=== PATIENT | male | born 1965 | race Caucasian/White ===

== ENCOUNTER 2017-12-18 14:11 | Emergency (ER) | payer SELFPAY ==
[2017-12-18 14:12] VITALS: BP 142/84; PULSE 65; RESP 20; TEMP 37; O2SAT 99; BMI 24.8
--- NOTE | 2017-12-18 14:42 | RAD_ITS ---
STUDY: X-RAY CHEST REASON FOR EXAM: Male, 52 years old. Chest pain TECHNIQUE: Single AP portable view of the chest. COMPARISON: None. FINDINGS: The lungs are clear and expanded. There is no demonstrated pleural abnormality. Normal size heart. Normal mediastinum and nash. Normal visualized pulmonary arteries. Normal visualized aortic arch and descending thoracic aorta. Normal visualized thoracic spine. Normal visualized ribs, clavicles, and shoulders. There is no demonstrated abnormality of the visualized soft tissue structures of the upper abdomen. RAD/Chest PA and Lateral IMPRESSION: Normal x-ray examination of the chest. Electronically Signed: Bethel Sales DO at 15:22 EDT Tel , Service support ,
--- NOTE | 2017-12-18 14:42 | EKG12_ITS ---
Test Reason : CP Blood Pressure : / mmHG Vent. Rate : 053 BPM Atrial Rate : 053 BPM P-R Int : 146 ms QRS Dur : 092 ms QT Int : 396 ms P-R-T Axes : 038 019 054 degrees QTc Int : 371 ms Sinus bradycardia Otherwise normal ECG Confirmed by DONELL LORENZO, TANGELA ([id number]), graphic editor ALEJANDRO VELASQUEZ ([id number]) on 12/23/2017 3:06:39 PM Referred By: RAMIREZ Confirmed By:TANGELA MARLEY MD
[2017-12-18 15:02] VITALS: BP 101/81; PULSE 77; RESP 20; O2SAT 95
[2017-12-18 15:24] VITALS: PULSE 82; RESP 23; O2SAT 98
[2017-12-18] MEDS: Ipratropium/Albuterol Sulfate 3 ML AMPUL.NEB INHALATION (15:24)
--- NOTE | 2017-12-18 15:55 | ED.VISSUMM ---
- ER Visit Summary Date of Service: 12/18/17 Chief Complaint: Chest pain History of Present Illness: The patient is a 52 M who reports left-sided back pain just underneath his scapula for the past 3 weeks. He thought he pulled a muscle. This morning he coughed while he was in the shower and now has sharp pain to that same area. He has a history of asthma so he states he always coughs. There has been no recent change in those symptoms. No recent URI symptoms. No trauma to the chest. Physical Examination: Blood pressure is 142/84, temperature 98.6, heart rate 65, respiratory rate 20, pulse ox 99% on room air. Patient sitting upright in bed in no acute distress. He speaking full sentences. Heart is regular rate and rhythm. Lung sounds with mild rales throughout. He has mild tenderness to palpation just inferior to the left scapula. No crepitus is noted. Abdomen is soft nontender. Lower extremity examination was no calf tenderness or edema. Test Results: Two-view chest x-ray is unremarkable. EKG is sinus bradycardia at 53 bpm with no sign of acute ischemia. Emergency Department Course and Treatment: Patient was given DuoNeb treatment here. On repeat evaluation patient states he feels much improved. He does have albuterol inhaler at home he can use. He will be given a prescription for naproxen. Treatment Plan: [] Disposition: Discharge Impression: Chest wall pain This note was generated with [employer] dictation software. It may contain incorrect words, spelling, and punctuation that were not noted in review of the chart prior to signing ED Disposition - Plan for ED Patient: Chief Complaint: Chest Pain Referrals: Blas Callahan DO [Primary Care Provider] -
--- NOTE | 2017-12-18 15:56 | ED.DEP ---
ED Disposition - Plan for ED Patient: Disposition: Home or Assisted Living Chief Complaint: Chest Pain Instructions: ED Strain Chest Wall Prescriptions: Naproxen [Naprosyn] 500 mg PO BID PRN #20 tablet Referrals: Blas Callahan DO [Primary Care Provider] - 1 Week if not improving
[2017-12-18 16:09] VITALS: BP 152/129; PULSE 81; RESP 15; O2SAT 98
[2017-12-18 16:10] VITALS: BP 144/90; PULSE 72; RESP 18; O2SAT 98
== END 2017-12-18 16:13 | disposition home or self-care (01) ==
PROVIDERS: Emergency Provider Emergency Medicine; Family Provider Family Medicine; PCP Family Medicine
DX: R07.89 Other chest pain (principal)
CPT/HCPCS: 71046; 93005; 94640; 99285; A4216

== ENCOUNTER → 2022-03-13 | Outpatient (CLI) | payer OTHER, SELFPAY ==
--- NOTE | 2022-03-13 15:46 | RAD_ITS ---
INDICATION: PAIN EXAMINATION/TECHNIQUE: X-RAY - LEFT XR Knee 3 Views 3 VIEWS COMPARISON: None. FINDINGS: Mild to moderate narrowing of the medial joint space, mild narrowing of the lateral joint space is visualized. Mild narrowing of the patellofemoral joint space is seen. Degenerative bone changes are seen. No evidence of cortical irregularity or lucency to suggest a fracture, no evidence of lytic or sclerotic bone lesion is seen. No evidence of suprapatellar effusion is seen. Quadriceps patellar tendons are unremarkable. RAD/Knee 3 Views IMPRESSION: Degenerative changes, no evidence of acute osseous abnormality is seen. Electronically Signed: uLciano Thomson MD at 16:09 EDT ,
--- NOTE | 2022-03-13 15:47 | RAD_ITS ---
INDICATION: PAIN EXAMINATION/TECHNIQUE: X-RAY - RIGHT XR Knee 3 Views 3 VIEWS COMPARISON: None. FINDINGS: Moderate narrowing of the medial joint space, mild narrowing of the lateral joint space is visualized. Mild narrowing of the patellofemoral joint space is seen. Degenerative bone changes are seen. No evidence of cortical irregularity or lucency to suggest a fracture, no evidence of lytic or sclerotic bone lesion is seen. Suggestion of a small suprapatellar effusion is seen. Quadriceps patellar tendons are unremarkable. RAD/Knee 3 Views IMPRESSION: Degenerative changes, no evidence of acute osseous abnormality is seen. Electronically Signed: Luciano Thomson MD at 16:10 EDT ,
[2022-03-13 17:59] LABS: Absolute Neutrophil Count 6.2 X10^3/uL (2.0-7.7); Basophil# 0.04 X10^3/uL; Basophil% 0.5 % (0-1); Eosinophil# 0.12 X10^3/uL; Eosinophils% 1.4 % (0-5); Hematocrit 43.8 % (40-54); Hemoglobin 14.9 g/dL (13.0-16.5); Lymphocyte % 20.7 % (19-41); Mean Corpuscular Hgb 33.9 pg (27.0-32.0); Mean Corpuscular Volume 99.5 fL (80-94); Mean Platelet Vol. 8.8 fl (6.2-12.0); Monocyte# 0.55 X10^3/uL; Monocyte% 6.3 % (0-10); NRBC Flagged by Analyzer 0 % (0-5); Neutrophil # 6.15 X10^3/uL (2.7-7.7); Neutrophil % 70.8 % (47-70); Platelet Count 304 K/mm3 (150-450); RBC Distribution Width CV 12.1 % (11.6-14.6); White Blood Count 8.7 K/mm3 (4.4-11.0)
[2022-03-13 18:18] LABS: AST(SGOT) 20 U/L (15-37); Alanine Aminotransfer ALT/SGPT 33 U/L (16-61); Albumin, Serum 3.8 g/dL (3.2-5.0); Alkaline Phosphatase 102 U/L (45-117); Anion Gap 9 (5-15); BUN 30 mg/dL (7-18); BUN/Creat Ratio 28.6 RATIO (10-20); Calcium,Total 9.3 mg/dL (8.5-10.1); Chloride 105 mmol/L (98-107); Cholesterol 214 mg/dL (200); Creatinine, Serum 1.05 mg/dL (0.70-1.30); EST Glomerular Filtration Rate 77 mL/min (>60); Est Glom Filt Rate - Afr Amer 93 mL/min (>60); Globulin 3.8 g/dL (2.2-4.2); Glucose 109 mg/dL (74-106); High Density Lipoprotein 51 mg/dL; Potassium 3.6 mmol/L (3.5-5.1); Protein, Total 7.6 g/dL (6.4-8.2); Sodium Level 143 mmol/L (136-145); T4 Free Direct 0.84 ng/dL (0.76-1.46); Thyroid Stim Hormone (TSH) 0.88 uIU/mL (0.358-3.74); Triglycerides 195 mg/dL; Very Low Density Lipoprotein 39 mg/dL (5-40)
== END | disposition home or self-care (01) ==
LOC: MTLAB 15:45
PROVIDERS: PCP Family Medicine; Referring Provider Family Medicine; Visit Provider Family Medicine
DX: M25.562 Pain in left knee (principal); M25.561 Pain in right knee; F17.210 Nicotine dependence, cigarettes, uncomplicated; E04.1 Nontoxic single thyroid nodule
CPT/HCPCS: 36415; 73562; 80053; 80061; 84439; 84443; 85025

== ENCOUNTER → 2022-03-19 | Outpatient (CLI) | payer OTHER, SELFPAY ==
--- NOTE | 2022-03-19 12:54 | US_ITS ---
STUDY: THYROID ULTRASOUND REASON FOR EXAM: Male, 56 years old. Thyroid nodule. TECHNIQUE: Ultrasound evaluation of the thyroid was performed with real-time and static reinoso-scale imaging. COMPARISON: None. FINDINGS: RIGHT LOBE: The right lobe of the thyroid gland measures 4.9 cm x 1.4 cm x 1.8 cm. There is a homogeneous echotexture. There are no demonstrated solid, cystic or complex lesions. LEFT LOBE: The left lobe of the thyroid gland measures 4.8 cm x 1.3 cm x 1.6 cm. There is a homogeneous echotexture. There are no demonstrated solid, cystic or complex lesions. ISTHMUS: The isthmus measures 1 mm. The regional lymph nodes are normal. US/Thyroid IMPRESSION: Normal ultrasound examination of the thyroid. Electronically Signed: Patrick Lozano MD at 13:27 EDT ,
== END | disposition home or self-care (01) ==
PROVIDERS: PCP Family Medicine; Referring Provider Family Medicine; Visit Provider Family Medicine
DX: E04.1 Nontoxic single thyroid nodule (principal)
CPT/HCPCS: 76536

== ENCOUNTER → 2022-03-23 | Outpatient (CLI) | payer OTHER, SELFPAY ==
--- NOTE | 2022-03-24 08:48 | PFT ---
INTRODUCTION: The patient is a 56-year-old male that presents for pulmonary function studies secondary to a diagnosis of chronic cough. Respiratory therapy reported good patient effort. Bronchodilators were used during testing. INTERPRETATION: Forced expiration spirometry demonstrates the presence of a mild large airways obstructive ventilatory defect. There was no significant response to aerosolized bronchodilators. Spirograms are of good quality and plateau gradually indicating slow emptying of the lungs. Body plethysmography was performed and reveals lung volumes to be within normal limits. Diffusing capacity by single breath CO is also within normal limits. IMPRESSION: Irreversible mild large airways obstructive ventilatory defect with preserved lung volumes and diffusing capacity.
== END | disposition home or self-care (01) ==
LOC: PSN 06:50
PROVIDERS: PCP Family Medicine; Visit Provider Family Medicine
DX: R05.3 Chronic cough (principal)
CPT/HCPCS: 94060; 94726; 94729

== ENCOUNTER → 2022-08-29 | Outpatient (CLI) | payer OTHER, SELFPAY ==
--- NOTE | 2022-08-29 10:05 | CT_ITS ---
STUDY: LOW DOSE CT LUNG CANCER SCREENING REASON FOR EXAM: Male, 57 years old. ENCOUNTER FOR SCREENING FOR MALIGNANT NEOPLASM OF LUNG RADIATION DOSAGE (If Supplied By Facility): CTDIvol = ( 3.02 ) mGy, DLP = ( 93.65 ) mGycm TECHNIQUE: No contrast was administered. Low dose technique was utilized (average mAS-38 and kVp 120). 1.25 mm axial source images with a slice interval of 1.25-mm were reconstructed in lung windows. 2.5 mm axial source images with a slice interval of 2.5-mm were reconstructed in lung windows. 5.0 mm axial source images with a slice interval of 5.0-mm were reconstructed in soft tissue windows. COMPARISON: None. Emphysema: Mild emphysema. No noncalcified nodule or mass. Endobronchial lesion: None Aorta: No aortic aneurysm. CORONARY ARTERIES: Coronary artery calcification is seen. Heart: No cardiomegaly. Pulmonary artery: Normal Mediastinal nodes: Normal Other chest and abdominal findings: None CT/Low Dose CT Lung Screening IMPRESSION: Lung-RADS category 1 - Continue annual screening with LDCT in 12 months. IMPORTANT NOTES FOR USE: ACR Lung-RADS Version 1.1 Assessment Categories Release Date: 2018 Category: Coded 0-4 bases on nodule(s) with highest degree of suspicion. Negative screen is defined as categories 1 and 2; a positive screen is defined as categories 3 and 4. Category 3 and 4A nodules that are unchanged on interval CT should be coded as category 2, and individuals returned to screening in 12 months. Category 4X: Category 3 or 4 nodules with additional imaging findings that increase the suspicion of lung cancer, such as spiculation, GGN that doubles in size in 1 year, enlarged lymph notes, etc. Category Modifiers: S (significant finding unrelated to lung cancer) Electronically Signed: Magno Lan MD at 13:00 EST ,
== END | disposition home or self-care (01) ==
LOC: CT 10:03
PROVIDERS: PCP Family Medicine; Visit Provider Nurse Practitioner Family
DX: Z12.2 Encounter for screening for malignant neoplasm of respiratory organs (principal)
CPT/HCPCS: 71271

== ENCOUNTER → 2022-09-26 | Outpatient (CLI) | payer OTHER, SELFPAY ==
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
--- NOTE | 2022-09-26 08:53 | MRI_ITS ---
INDICATION: pain, hyperextended knee 7 mon ago EXAMINATION: MRI - LEFT MR Knee W/O Contrast TECHNIQUE: Multiplanar and multisequence MR images of the LEFT knee. IV Contrast Dosage and Agent: None. COMPARISON: None. FINDINGS: BONE: See below. JOINT: Mild tricompartmental chondromalacia and osteoarthritis. Moderate marrow edema medial femoral condyle mild marrow edema medial aspect medial tibial plateau. MUSCLES: Unremarkable. MENISCI: Image tear posterior horn extends inferior articular surface series 4 image 7. Tear extends to the body where it also extends inferior articular surface on series 6 image 15. Anterior horn is intact. CRUCIATE LIGAMENTS: Anterior and posterior cruciate ligaments are intact. COLLATERAL LIGAMENTS: Medial collateral ligament and lateral collateral ligamentous complex, inclusive of the popliteal tendon, are intact. CARTILAGE: Osteochondritis dissecans inferior medial medial femoral condyle measuring 8 mm transverse. OTHER SOFT TISSUES: Tiny Shah''s cyst. Moderate suprapatellar joint effusion with plica extending across suprapatellar bursa. MRI/Lower Ext Joint Only (Routine) IMPRESSION: Cleavage tear posterior horn and body medial meniscus extends inferior articular surface. Osteochondritis desiccated and medial femoral condyle with moderate subjacent marrow edema. Moderate suprapatellar joint effusion. Tiny Shah''s cyst. Electronically Signed: Abdullahi Doss MD, ABIGAIL at 12:51 EDT ,
== END | disposition home or self-care (01) ==
LOC: MRI 08:52
PROVIDERS: PCP Family Medicine; Referring Provider Orthopaedic Surgery; Visit Provider Orthopaedic Surgery
DX: M17.12 Unilateral primary osteoarthritis, left knee (principal); M23.90 Unspecified internal derangement of unspecified knee
CPT/HCPCS: 70030; 73721

== ENCOUNTER 2022-10-20 09:24 | Day surgery (SDC) | payer OTHER, SELFPAY ==
[2022-10-20 09:54] VITALS: BP 137/85; PULSE 71; RESP 16; TEMP 36.9; O2SAT 95; BMI 25.1
[2022-10-20] MEDS: Lactated Ringers 1,000 ML 15 ML IV (10:00)
--- NOTE | 2022-10-20 10:23 | PCM.HP.BLA ---
History and Physical Date of Admission: 10/20/22 [facility] [address] [place] [address] OFFICE VISIT Date of Service:? 09/28/22 MR#: [id number] Acct: [id number] Name:CHINA STOVER Rep #: [id number] : 1965 ? ? Provider: Dr. Ottoniel Napoles, Age/Sex:? 57/M ? ? [place] [facility] [place] Status: Signed Intake Intake Visit Reasons:?LEFT KNEE Accompanied by: Self Is patient in pain?: Yes Allergies No Known Allergies Allergy (Verified 09/16/22 10:13) Medications etodolac 500 mg tablet 500 mg PO BID #60 tabs 05/18/22 [Rx Confirmed 09/28/22] PFSH Surgical History? History of tonsillectomy Family History? Grandfather Colon cancer Social History? Smoking Status:? Current every day smoker tobacco type: cigarettes alcohol intake:? current alcohol intake frequency: a few times a week HPI LEFT KNEE Details: Parts of this documentation were recorded by a scribe, this documentation accurately reflects the service provided and the decisions made by me, Dr. Ottoniel Napoles, DO 09/28/22 0827. CHINA GRACE is a 57 year old M here today for? F/U on the left knee after having MRI of the knee. He states that his knee is still very painful and he has a painful locking in the knee. His knee is also very painful with pivoting motions of the knee. HE has been FWB and using a hinge knee brace. He has been taking etoldolac. Ortho Exam General General: Yes no acute distress Neurologic: Yes alert and Yes oriented x3 Psychologic: Yes reasonable and appropriate Right Knee Patella Translation: 1 Left Knee Skin/Wound: Yes CDI, No ecchymosis, No erythema and No swelling Homans Sign: No Knee ROM: Yes ROM-Extension -20 to 0 and Yes ROM-Flexion 0-140 (118) Examination: Yes med jt line tenderness, No Lat jt line tenderness and Yes Trevin's Test Stability: NML: Anterior Drawer, NML: Posterior Drawer, NML: Valgus 0, NML: Valgus 30 and NML: Varus 0 Patella Translation: 1 KNEE: slight varus deformity, synovial hypertrophy. translation of patella- crepitation and pain, medial trevin causes pain. Head: Normocephalic Atraumatic Chest: symmetrical rise, non-labored breathing, no audible wheeze Abdomen: no guarding, non-rigid Supplemental Info 09/26/2022 MRI left knee: Mild tricompartmental chondromalacia, ? Moderate marrow edema medial femoral condyle and medial tibial plateau , with some subchondral irregular irregularity of the posterior medial femoral condyle there is a large tear of the posterior horn medial meniscus which extends to the articular surface and body 03/13/2022 x-ray left knee: Mild to moderate narrowing of the medial compartment Coding Level of Care Code Off vis,est,level 3 Assessment and Plan Plan Details Additional Comments: Patient educated that he has a large medial meniscus tear of the knee along with OA and edema of the bone over the medial side of the knee. Educated that there may be an area wear the cartilage is missing over the medial knee. Recommended a left knee arthroscopy partial medial meniscectomy versus repair with possible microfracture medial femoral condyle but microfracture or meniscus repair would? require him to be NWB for 6 weeks. Reviewed the pre-operative plans with the patient. Risks and benefits of the procedure were fully explained, including but not limited to infection, neurovascular injury, continued pain, arthritis, stiffness, need for further surgery, re-injury, DVT, PE, general risks of anesthesia, and loss of limb or life. The patient understands all the risks and does wish to proceed with written consent for left knee arthroscopy partial medial meniscectomy vs repair, possible microfracture repair. Also discussed a medial research professional brace for post op but this will be further discussed after surgery. He should stop all NSAIDs 7 days prior to surgery including etodolac. He wishes to proceed with surgery as soon as he can. Discussed smoking cessation as would help with risk of wound infection and healing.? Risk of needing further surgery secondary to arthrosis and possibility of continued pain addressed. Follow up 2 weeks post op or sooner if pain, swelling, numbness or associated symptoms, or concerns develop.? All questions answered. Patient in agreement of plan. 09/28/22 1150 <Electronically signed by Ottoniel Napoles DO> Date Ottoniel Napoles DO Cosigner Signature: Date (if applicable) I have examined the patient and the H&P has been reviewed. There are no clinical changes since date of exam.
[2022-10-20] MEDS: Cefazolin 2 GM in 0.9% Normal Saline 100 ML IV (11:19)
[2022-10-20] MEDS: Epinephrine (1 mg/ml) 1 MG/ML VIAL (11:30)
[2022-10-20] MEDS: Lidocaine 1%/Epi 1:200 (30ml) 30 ML AMPUL (11:30)
[2022-10-20] MEDS: MethylPREDNISolone Acetate 40 MG/ML Vial IM (11:57)
[2022-10-20] MEDS: Bupivacaine Mpf 0.5% 30 ML VIAL (11:57)
--- NOTE | 2022-10-20 11:58 | OP.PCM_ITS ---
Operative Report Date of Procedure: 10/20/22 Preop diagnosis: Left knee medial meniscus tear DJD Postoperative diagnosis: Left knee complex degenerative medial meniscus tear diffuse grade III chondromalacia medial compartment with small areas of grade 4 and grade 2-3 cartilage wear patellofemoral joint Procedure: Left knee arthroscopic partial medial meniscectomy and chondroplasty medial and patellofemoral compartment Anesthesia: General Estimated blood loss: 5 mL Tourniquet time: 30 minutes 300 mmHg Complications: none Indication for procedure: 57-year-old male patient who has had ongoing mechanical knee pain in spite of conservative treatment did have MRI evidence of medial meniscus tear and DJD the patient did wish to proceed with an elective arthroscopic surgery to attempt to alleviate the symptoms. Risk benefits and alternatives of the procedure were reviewed including risk of bleeding infection nerve artery tissue damage need for further surgery continued pain and expected postoperative course. Procedure: The patient was met in the preoperative holding area. The operative extremity was identified by both patient and physician and family and marked. Patient was brought back to the operating room on a wheeled cart and transferred to the operating table in the supine position. Anesthesia was started. A well- padded tourniquet was placed on the operative extremity. A lower extremity leg oacsio was secured to the operative extremity. The contralateral extremity was well-padded and the end of the bed was flexed to 90 degrees. The patient was prepped and draped in the usual sterile fashion. A timeout was called to ensure the proper patient, procedure, and extremity were being contemplated. 0.5% Marcaine with epinephrine was injected into the planned incisional areas under the skin only. An Esmarch was used to exsanguinate the extremity and the tourniquet was inflated. An 11 blade scalpel was used to make a stab incision in the anterior lateral portal. The arthroscope was inserted into the intercondylar notch and inflow and outflow tubes were attached. Arthroscopic visualization began. The medial compartment was entered. An 18-gauge spinal needle was used to establish the placement for anterior medial portal. An 11 blade scalpel was used to make a stab incision. Blunt probe was inserted followed by a meniscal probe. There is noted be high grade 3 cartilage wear throughout the medial compartment including the medial femoral condyle and a small area of grade 4 of the medial tibial plateau there was also noted a complex tear of the posterior horn and body of the medial meniscus with use of arthroscopic biting instruments and a shaver and ArthroCare wand a partial medial meniscectomy and chondroplasty of the medial compartment was performed the ACL was found to be intact. The lateral compartment was entered and was free of meniscal or cartilage pathology The arthroscope was switched to the medial portal to complete the procedure. The medial and lateral gutters were inspected and were free of loose bodies. The patellofemoral joint was inspected and had areas of grade III chondromalacia of the trochlea and patella gentle chondroplasty was performed in these areas for loose cartilage flaps. There was good patellar tracking. The knee was thoroughly irrigated and drained. An intra-articular injection with 5 cc 0.5% Marcaine plain and 40 mg of Depo-Medrol was injected intra-articularly. The arthroscope was removed the portals were closed with 3-0 nylon arthroscopic stitches. Followed by Xeroform 4 x 4's ABDs web roll and an Victor M wrap. The tourniquet was let down and the drapes were removed. All counts were correct. The patient was brought back to the PACU in stable condition. 3
--- NOTE | 2022-10-20 12:01 | DCINST_ITS ---
Discharge Instructions Diet Discharge Diet: No restrictions Dressing / Incision Call your doctor if you observe: Shortness of breath and Chest pain Additional Dressing/Incision Instructions:: Ice and elevate next 72 hours .keep dressing on clean and dry for 48 hours then may remove begin showering daily but do not submerge in tub or pool. After shower may apply Band-Aids . Encourage knee range of motion weightbearing as tolerated, use crutches until confident in knee then may discontinue. No strenuous activity. When not ambulating keep iced and elevated next 72 hours. Do not mix pain medication with recreational drugs or alcohol only take as prescribed can be addictive and abusive, call with any questions or concerns. Follow Up Care Please Follow Up With: Ottoniel Napoles DO When: 2 weeks Test Results: Test results from this visit will be discussed in further detail at your follow- up appointment, if applicable. Discharge Plan Admission Primary Reason for Your Visit: Left knee arthroscopy Attending Provider: Ottoniel Napoles Primary Care Provider: Kam Combs Discharge Orders/Prescriptions Prescriptions: New oxycodone 5 mg tablet 5 - 10 mg PO Q4H PRN (Reason: pain) 5 Days Qty: 20 0RF Referrals / Follow Up: Kam Combs MD [Primary Care Provider] - Disposition Disposition (needs filled in before D/C Order can be placed): Home, Self Care
[2022-10-20 12:09] VITALS: BP 120/88; BP 137/85; PULSE 62; RESP 16; TEMP 36.2; O2SAT 95
[2022-10-20 12:15] VITALS: BP 114/84; BP 137/85; PULSE 68; RESP 16; O2SAT 93
[2022-10-20 12:30] VITALS: BP 137/85; BP 153/86; PULSE 73; RESP 16; O2SAT 96
[2022-10-20 12:36] VITALS: BP 137/85; BP 150/94; PULSE 75; RESP 18; TEMP 36.1; O2SAT 100
[2022-10-20 13:05] VITALS: BP 137/85
== END 2022-10-20 13:19 | disposition home or self-care (01) ==
LOC: SDC 09:25 → AC 09:26
PROVIDERS: PCP Family Medicine; Referring Provider Orthopaedic Surgery; Visit Provider Orthopaedic Surgery
PROC: (CPT 29870; principal; 2022-10-20 10:45)
DX: S83.232A Complex tear of medial meniscus, current injury, left knee, initial encounter (principal); J44.9 Chronic obstructive pulmonary disease, unspecified; M94.262 Chondromalacia, left knee; X58.XXXA Exposure to other specified factors, initial encounter; M17.12 Unilateral primary osteoarthritis, left knee; F17.210 Nicotine dependence, cigarettes, uncomplicated
CPT/HCPCS: 29881; 01400; J7120; J2405

== ENCOUNTER → 2023-08-11 | Outpatient (CLI) | payer OTHER, SELFPAY ==
[2023-08-11 11:16] LABS: Bacteria 0 SEEN /hpf (None Seen); Mucous, Urine 0 SEEN /hpf (<or=2+); Red Blood Cells-Urine 0 SEEN /hpf (0-5); Squamous Epithelial Cells - UA 0 SEEN /hpf (0-5); White Blood Cells 0 SEEN /hpf (0-5)
--- OUTSIDE RECORDS SUMMARY | 2023-08-11 11:53 | XMS RPT_ITS | CCD ---
Author Name Unknown Address [address] [place] [address] Organization [facility] Care Team Providers Care Enrollment Counselor Name Role Phone MARY LOU VELASQUEZ Attending Unavailable MARY LOU VELASQUEZ Primary Care Unavailable MARY LOU VELASQUEZ Admitting Unavailable BRETT LUNA Consulting Unavailable PROVIDER, UNKNOWN Consulting Unavailable Results Test Name Value Interpretation Reference Range Facil ity Encounters Encounter Date Encounter Type Care Provider Facility Start: 10-27-2021 End: 10-27-2021 ambulatory MARY LOU VELASQUEZ [facility] Payers Date Payer Category Payer Unknown [id number] Unknown [id number] Summary Purpose Family History No Family History Records FoundNo Family History Records Found Advance Directives No Advanced Directives Records FoundNo Advanced Directives Records Found Additional Source Comments (unrecognized sect ion and content) No Status Records FoundNo Status Records Found INFORMATION SOURCE (unrecogn ized section and content) DATE CREATED AUTHOR AUTHOR'S ORGANIZ ATION 10/31/2021 [facility] FOR RECORDS PERTAINING TO PATIENTS WHO ARE OR HAVE BEEN ENROLLED IN A CHEMICAL DEPENDENCY/SUBSTANCEABUSE PROGRAM, SOME INFORMATION MAY BE OMITTED. This clinical summary was aggregated from multiple sources. Caution should be exercised in using it in the provision of clinical care. This summary normalizes information from multiple sources, and as a consequence, information in this document may materially change the coding, format and clinical context of patient data. In addition, data may be omitted in some cases. CLINICAL DECISIONS SHOULD BE BASED ON THE PRIMARY CLINICAL RECORDS. [facility]. provides no warranty or guarantee of the accuracy or completeness of information in this document.
[2023-08-11 15:13] LABS: Absolute Lymphocyte Count 2.05 X10^3/uL (0.83-4.51); Absolute Neutrophil Count 6.8 X10^3/uL (2.0-7.7); Basophil# 0.03 X10^3/uL; Basophil% 0.3 % (0-1); Eosinophil# 0.12 X10^3/uL; Eosinophils% 1.2 % (0-5); Hemoglobin 15.3 g/dL (13.0-16.5); Lymphocyte # 2.05 X10^3/ul (0.83-4.51); Lymphocyte % 21.2 % (19-41); Mean Corpuscular Hgb 33.7 pg (27.0-32.0); Mean Corpuscular Volume 99.1 fL (80-94); Mean Platelet Vol. 8.6 fl (6.2-12.0); Monocyte# 0.65 X10^3/uL; Monocyte% 6.7 % (0-10); NRBC Flagged by Analyzer 0 % (0-5); Neutrophil # 6.81 X10^3/uL (2.7-7.7); Neutrophil % 70.3 % (47-70); Platelet Count 336 K/mm3 (150-450); RBC Distribution Width CV 12.2 % (11.6-14.6); RBC Distribution Width SD 44.6 fl (35.1-43.9); Red Blood Count 4.54 M/mm3 (4.6-6.2); White Blood Count 9.7 K/mm3 (4.4-11.0)
[2023-08-11 15:41] LABS: Cholesterol 212 mg/dL (200); High Density Lipoprotein 50 mg/dL; PSA,Total - Annual Screen 0.75 ng/mL (0.00-4.00); Triglycerides 169 mg/dL; Very Low Density Lipoprotein 34 mg/dL (5-40)
[2023-08-11 15:45] LABS: Color, Urine Yellow (Yellow); Glucose, Dipstick Normal (Normal); Ketone-Dipstick Negative (Negative); Leukocyte Esterase-Dipstick Negative /ul (Negative); Nitrite-Dipstick Negative (Negative); Occult Blood-Urine Negative /ul (Negative); Protein-Dipstick Negative (Negative); Specific Gravity, Urine 1.025 (1.002-1.030); Urine Bilirubin Dipstick Negative (Negative); Urine Clarity Clear (Clear); Urine Urobilinogen Normal (Normal)
== END | disposition home or self-care (01) ==
PROVIDERS: PCP Family Medicine; Referring Provider Family Medicine; Visit Provider Family Medicine
DX: Z00.00 Encounter for general adult medical examination without abnormal findings (principal); Z12.5 Encounter for screening for malignant neoplasm of prostate; F17.210 Nicotine dependence, cigarettes, uncomplicated
CPT/HCPCS: 80061; 81001; 84153; 85025; G0103

== ENCOUNTER → 2023-09-03 | Outpatient (CLI) | payer OTHER, SELFPAY ==
--- NOTE | 2023-09-03 16:45 | CT_ITS ---
EXAM: CT CHEST, LUNG CANCER SCREENING WITHOUT INTRAVENOUS CONTRAST CLINICAL INDICATION: smoker TECHNIQUE: Helically acquired images were obtained of the chest without intravenous contrast using low dose (LDCT) lung cancer screening protocol. This CT exam was performed using one or more of the following dose reduction techniques: automated exposure control, adjustment of the mA and/or kV according to patient size, and/or use of iterative reconstruction technique. COMPARISON: CT chest, 08/29/2022 FINDINGS: LUNGS AND PLEURAL SPACES: Small right hilar granuloma. Small apical blebs are identified bilaterally. No mass. No pleural effusion or thickening. No pneumothorax. HEART: Coronary artery calcifications. Heart size is normal. No pericardial effusion. MEDIASTINUM: No significant abnormality. No mediastinal or hilar adenopathy. Esophagus is unremarkable. No hiatal hernia. THYROID: No significant abnormality. No thyroid lesions. BONES/JOINTS: Degenerative changes in the spine. There is a healed left posterior rib fracture. No suspicious lytic or blastic abnormality. VASCULATURE: Atherosclerosis. LYMPH NODES: No significant abnormality. No enlarged lymph nodes. CT/Low Dose CT Lung Screening IMPRESSION: ACR Lung CT Screening Reporting And Data System (Lung-RADS) score: 1 - Recommend continued annual screening with a low-dose CT (LDCT) in 12 months. Electronically Signed: Giovany Alvarado DO at 17:44 EDT ,
== END | disposition home or self-care (01) ==
LOC: CT 16:43
PROVIDERS: PCP Family Medicine; Referring Provider Family Medicine; Visit Provider Family Medicine
DX: Z12.2 Encounter for screening for malignant neoplasm of respiratory organs (principal); F17.210 Nicotine dependence, cigarettes, uncomplicated
CPT/HCPCS: 71271

== ENCOUNTER → 2025-02-16 | Outpatient (CLI) | payer SELFPAY ==
--- NOTE | 2025-02-16 09:46 | RAD_ITS ---
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 RAD/Chest PA and Lateral IMPRESSION: Moderate thoracic spine degenerative changes are seen, along with DISH. Also, mild chronic appearing wedge compressions multiple mid to lower thoracic vertebral bodies are seen. No subluxation is evident. Edwue-bpgjtea-mxhj-left acromioclavicular joint degenerative changes are seen. Lungs appear clear of acute disease, but are moderately hyperinflated, consiste nt with the given history of COPD.. No pleural effusion or pneumothorax is noted. The cardiomediastinal silhouette is within the normal range. Reading Location: [place] [id number]
== END | disposition home or self-care (01) ==
PROVIDERS: PCP Family Medicine; Referring Provider Family Medicine; Visit Provider Family Medicine
DX: J44.1 Chronic obstructive pulmonary disease with (acute) exacerbation (principal)
CPT/HCPCS: 71046